=== PATIENT | male | born 1995 | race Caucasian/White ===

== ENCOUNTER 2020-10-10 11:54 | Outpatient (CLI) | payer BC ==
[~2020-10-10 11:54] MED LIST: Magnevist 469MG/ML 20 ML VIAL ONE
--- NOTE | 2020-10-10 14:44 | MRI ---
MRI of thebrain with and without contrast: 10/10/2020 COMPARISON:None available HISTORY:Intracranial injury without loss of consciousness TECHNIQUE: Multiplanar multisequence MR imaging of thebrain with and without contrast Findings:The diffusion weighted imaging demonstrates no evidence for acute infarction. The axial gradient echo imaging demonstrates no evidence for intracranial hemorrhage. There is mild mucosal thickening involving the bilateral maxillary sinuses. Arterial flow voids at the axial level of the skull base appear grossly unremarkable on the T2-weight ed imaging. There is no midline shift or mass effect and no ventricular enlargement. No abnormal white matter signal identified. Postcontrast imaging demonstrates no abnormal enhancement within the brain parenchyma. IMPRESSION: No acute findings.
--- NOTE | 2020-10-11 15:28 | EEG ---
DATE OF SERVICE: DESCRIPTION OF THE RECORD: The waking background is a medium amplitude 9 hertz alpha frequency. The patient became drowsy during the study. Hyperventilation and photic stimulation were unremarkable. No epileptiform features were seen. IMPRESSION: Normal awake and drowsy EEG. Job ID: [id number]
== END 2020-10-10 11:55 | disposition home or self-care (01) ==
LOC: MRI 11:54
PROVIDERS: ATTEND Psychiatry & Neurology Neurology
DX: S06.890A Other specified intracranial injury without loss of consciousness, initial encounter (principal)
CPT/HCPCS: 70553; 95816; A9579